=== PATIENT | male | born 1955 | race Asian ===

== ENCOUNTER 2024-01-17 10:59 | Emergency (ER) | payer MEDICARE, OTHER ==
[~2024-01-17] VITALS: Ht 172.7 cm; Wt 69.0 kg
[2024-01-17 11:23] LABS: Basophils # (auto) 0.1 10 ^3/uL (0-0.2); Basophils % (auto) 0.8 % (0.0-2.0); Eosinophils # (auto) 0.3 10 ^3/uL (0-0.8); Eosinophils % (auto) 3.7 % (0.0-7.0); Hematocrit 47.3 % (41.0-53.0); Hemoglobin 15.3 g/dL (13.5-17.5); Lymphocytes # (auto) 2.5 10 ^3/uL (0.4-5.4); Mean Corpuscular Hemoglobin 27.7 pg (28.0-32.0); Mean Corpuscular Hgb Conc. 32.2 g/dL (32.0-36.0); Mean Corpuscular Volume 85.9 fL (80.0-100.0); Monocytes # (auto) 0.7 10 ^3/uL (0-1.3); Neutrophils # (auto) 3.3 10 ^3/uL (1.6-8.6); Neutrophils % (auto) 48.5 % (37.0-80.0); Nucleated Red Blood Cells % 0.3 %; Red Blood Cells 5.51 10^6/uL (4.5-5.90); Red Cell Distribution Width 14.8 % (11.8-14.3); White Blood Cell 6.8 10^3/uL (4.4-10.8)
[2024-01-17 11:30] LABS: Urine Bacteria None Seen /hpf (None Seen)
[2024-01-17 11:40] LABS: Alanine Aminotransferase 21 U/L (7-40); Albumin 4.4 g/dL (3.2-4.8); Alkaline Phosphatase 53 U/L (46-116); Anion Gap 2 (5-15); Aspartate Aminotransferase 19 U/L (13-40); BUN/Creatinine Ratio 8.9 (10.0-20.0); Blood Urea Nitrogen 11 mg/dL (9-23); Calcium 9.3 mg/dL (8.5-10.1); Carbon Dioxide 32 mmol/L (20-30); Chloride 104 mmol/L (98-107); Glucose 144 mg/dL (74-106); Sodium 138 mmol/L (136-145)
[2024-01-17 11:41] LABS: Bilirubin, Total 0.3 mg/dL (0.2-1.0); Total Protein 7.3 g/dL (5.7-8.2)
[2024-01-17 11:44] LABS: Urine Blood Negative /uL (Negative); Urine Clarity Clear (Clear); Urine Color Colorless (Yellow); Urine Protein, UAD 1+ (Negative); Urine Specific Gravity 1.007 (1.001-1.035); Urine Urobilinogen Normal (Negative); Urine WBC <1 /hpf (0 - 3); Urine pH 6.5 (5.0-9.0)
[2024-01-17 11:46] LABS: Partial Thromboplastin Time 30.4 SEC (24.5-34.5); Prothrombin Time 10.5 sec (9.3-11.8)
[2024-01-17] MEDS: cloNIDine HCL 0.1 MG TAB PO ONE (12:07)
[2024-01-17] MEDS: IOHEXOL 350 MG/ML 100ML IJ ONE (12:45)
[2024-01-17 15:30] VITALS: BP 127/73; PULSE 55; RESP 18; TEMP 97.4; O2SAT 97
== END 2024-01-17 15:45 | disposition home or self-care (01) ==
LOC: ER 10:59
DX: I10 Essential (primary) hypertension (principal); E11.9 Type 2 diabetes mellitus without complications; Z86.73 Personal history of transient ischemic attack (TIA), and cerebral infarction without residual deficits; Z98.890 Other specified postprocedural states
CPT/HCPCS: 36415; 71045; 71275; 80053; 81001; 83690; 83880; 84484; 85025; 85379; 85610; 85730; 93005; 99285; Q9967

== ENCOUNTER 2024-01-21 07:23 | Emergency (ER) | payer MEDICARE ==
[~2024-01-21] VITALS: Ht 170.2 cm; Wt 67.7 kg
[2024-01-21] MEDS: cloNIDine HCL 0.1 MG TAB PO ONE (08:19)
[2024-01-21 08:59] VITALS: BP 155/86; PULSE 59; RESP 18; O2SAT 59
== END 2024-01-21 09:19 | disposition home or self-care (01) ==
LOC: ER 07:23
DX: I10 Essential (primary) hypertension (principal); E11.9 Type 2 diabetes mellitus without complications; Z86.73 Personal history of transient ischemic attack (TIA), and cerebral infarction without residual deficits
CPT/HCPCS: 71045; 93005